=== PATIENT | male | born 1945 | race Hispanic/Latino ===

== ENCOUNTER 2016-09-03 08:34 | Day surgery (SDC) | payer BC, MEDICARE ==
[2016-08-23 08:31] VITALS: BMI 22.9
[2016-09-03] MEDS ORDERED: Naloxone 0.4 mg/ml Inj (Adult) ONE (11:37)
[2016-09-03] MEDS ORDERED: Flumazenil 0.1 mg/ml Inj (5ml) IVP ONE (11:37)
[2016-09-03] MEDS ORDERED: Midazolam 2 MG/2 ML VIAL ONE (11:37)
[2016-09-03] MEDS ORDERED: Midazolam 2 MG/2 ML VIAL IV ONE ×3 (11:43→11:47)
[2016-09-03] MEDS ORDERED: Sodium Chloride 0.9% 1,000 ML IV SCH (12:15)
[2016-09-03 12:47] VITALS: O2SAT 93
[2016-09-03 13:11] VITALS: RESP 20; TEMP 98.1
[2016-09-03 14:27] VITALS: BP 149/50; PULSE 62
--- NOTE | 2016-09-03 19:21 | CARD ---
APPROVED REPORT EXAM: Transesophageal echocardiogram with color flow Doppler. INDICATION Aortic Valve Disease 2D DIMENSIONS LVOT Diameter2.0 (1.8-2.4cm) Aortic Valve AoV Peak Onpjtrek369.0cm/sAoV VTI71.7cmAO Peak GR.55mmHg LVOT Peak Waqifiaa42.3cm/sLVOT VTI21.30cmAO Mean GR.33mmHg MAXINE (VMAX)0.97vp0JBY (VTI)0.93cm2 Mitral Valve E/A ratio0.0 TDI E/Lateral E'0.0E/Medial E'0.0 Reason For Test : To Assess severity PROCEDURE After obtaining informed consent, patient underwent transesophageal echo in the Echo Lab. Type of Sedation : Conscious Sedation Sedation was administered by DR Gill. Sedation was achieved with Versed and , Fentanyl 2.5 mg and 100mcg intravenously. Transesophageal probe was inserted and advanced into esophagus without difficulty. Echo enhancement indication: R/O Septal defect. Echo enhancement agent administered: Agitated Saline The YEIMY was performed without complications. Throughout the procedure, the blood pressure, pulse oximetry, cardiac rhythm, and rate were monitored. The patient tolerated the procedure without adverse effects. Recovery from conscious sedation was uneventful and vital signs were stable. LEFT VENTRICLE The left ventricle is normal size. There is mild left ventricular hypertrophy. The left ventricular function is normal.EF-55-60% There is normal LV segmental wall motion. The left ventricular diastolic function is normal. No left ventricle thrombus noted on this study. There is no ventricular septal defect visualized. There is no left ventricular aneurysm. There is no mass noted in the left ventricle. RIGHT VENTRICLE The right ventricle is normal size. There is normal right ventricular wall thickness. The right ventricular systolic function is normal. ATRIA The left atrium is borderline dilated. The right atrium size is normal. The interatrial septum is intact with no evidence for an atrial septal defect. AORTIC VALVE The aortic valve is moderately to severely sclerotic. There is moderate aortic regurgitation. There is moderate to severe valvular aortic stenosis. MAXINE 0.9 cm2 There is no aortic valvular vegetation. MITRAL VALVE The mitral valve leaflets are thickened. There is no evidence of mitral valve prolapse. There is no mitral valve stenosis. Mitral regurgitation is mild to moderate. TRICUSPID VALVE The tricuspid valve leaflets display thickening. There is mild tricuspid regurgitation. There is no tricuspid valve prolapse or vegetation. PULMONIC VALVE The pulmonic valve is mildly thickened. There is trace pulmonic valvular regurgitation. There is no pulmonic valvular stenosis. GREAT VESSELS The aortic root is normal in size. The ascending aorta is normal in size. The pulmonary artery is normal. The IVC is normal in size and collapses >50% with inspiration. PERICARDIAL EFFUSION There is no pericardial effusion. There is no pleural effusion. <Conclusion> The left ventricle is normal size. There is mild left ventricular hypertrophy. The left ventricular function is normal.EF-55-60% There is moderate aortic regurgitation. There is moderate to severe valvular aortic stenosis. MAXINE 0.9 cm2 Mitral regurgitation is mild to moderate. There is mild tricuspid regurgitation. There is trace pulmonic valvular regurgitation.
== END 2016-09-03 14:10 | disposition home or self-care (01) ==
LOC: TEE 08:34 → EDSTATUS 10:00 → TEE 14:10
PROVIDERS: ATTEND Internal Medicine Cardiovascular Disease
DX: I08.0 Rheumatic disorders of both mitral and aortic valves (principal); I10 Essential (primary) hypertension; I25.10 Atherosclerotic heart disease of native coronary artery without angina pectoris
CPT/HCPCS: 93312; J2250; J3010; J7040 ×2